=== PATIENT | male | born 1960 | race Two or more races ===

== ENCOUNTER 2025-04-21 20:36 | Emergency (ER) | payer OTHER ==
[~2025-04-21] VITALS: Ht 175.3 cm; Wt 95.3 kg
[2025-04-21] MEDS ORDERED: BENICAR5 MG PO (21:36)
[2025-04-21] MEDS ORDERED: POTASSIUM CITR15 MEQ PO (21:36)
[2025-04-21] MEDS ORDERED: CRESTOR40 MG PO (21:36)
[2025-04-21] MEDS ORDERED: NITROGLYCERIN 0.4 MG TAB.SUBL SL ONE (22:15)
[2025-04-21] MEDS ORDERED: FAMOtidine 10 MG/ML (4ML VIAL) IV ONE (22:15)
[2025-04-21 23:43] LABS: BASO % 0.3 % (0.1-1.2); EOS # 0.16 (0.04-0.54); EOS % 2.5 % (0.7-7.0); LYMPH # 1.99 (1.18-3.74); LYMPH % 30.7 % (19.3-53.1); MEAN PLATELET VOLUME 10.10 fl (9.4-12.4); MONO # 0.68 (0.24-0.82); MONO % 10.5 % (4.7-12.5); NEUT # 3.63 (1.56-6.13); NEUT % 55.8 % (34.0-71.1); RED CELL DISTRIBUTION WIDTH 13.4 % (11.6-14.4)
[2025-04-21 23:54] LABS: INR 1.04
[2025-04-22] LABS: ALT/SGPT 58.0 U/L (12-78); AST/SGOT 27.0 U/L (15-37); BILIRUBIN TOTAL 1.01 mg/dL (0.3-1.2); BUN CREA RATIO 12.0 (7.0-25.0); CREATININE SERUM 1.21 mg/dL (0.70-1.30); GFR 60.37; GLOBULINA 3.5 G/DL (2.4-3.5); GLUCOSE FASTING 98.0 mg/dL (65-100); OSMOLALITY SERUM 287.0 MOSM/KG (275-295)
== END 2025-04-22 05:38 | disposition home or self-care (01) ==
LOC: ER 20:36
PROVIDERS: General Practice
DX: M25.512 Pain in left shoulder (principal); R07.89 Other chest pain; I10 Essential (primary) hypertension